=== PATIENT | male | born 1950 | race Caucasian/White ===

== ENCOUNTER 2017-05-18 03:02 | Emergency (ER) | payer MEDICAID ==
[~2017-05-18] VITALS: Ht 170.2 cm; Wt 90.7 kg
[~2017-05-18 03:02] MED LIST: AMLODIPINE BESY10 MG PO; ATIVAN1 MG PO; FLOMAX0.4 MG PO; HYDROCHLOROTHIA25 MG PO; METOPROLOL SUCC25 MG PO; PRAVACHOL40 MG PO; VICODIN HP 10-1 EAC1 PO
--- NOTE | 2017-05-18 20:37 | EKG ---
[facility] [address] [facility] [place] [address] Signed Sinus tachycardia Otherwise normal ECG No previous ECGs available Confirmed by ISAAC VALDEZ MD ([id number]) on 05/18/2017 8:37:32 PM Electronically Signed By: ISAAC VALDEZ MD 05/18/17 2037 PATIENT NAME: PETE NICOLE Electrocardiogram DATE OF : 54 PHYSICIAN: ISAAC VALDEZ MD REPORT #: [id number] REPORT IS CONFIDENTIAL AND NOT TO BE RELEASED WITHOUT AUTHORIZATION
== END 2017-05-18 06:25 | disposition home or self-care (01) ==
LOC: ED 03:02
DX: R07.89 Other chest pain (principal); F10.239 Alcohol dependence with withdrawal, unspecified; F19.10 Other psychoactive substance abuse, uncomplicated; I10 Essential (primary) hypertension; Z79.899 Other long term (current) drug therapy; Y90.4 Blood alcohol level of 80-99 mg/100 ml
CPT/HCPCS: 36415; 71010; 71260; 80048; 80053; 84484; 85025; 85379; 85610; 85730; 93005; 93010; 96365; 96366; 96375; 99284; G0480; J2060; J3411; J7030; Q9967

== ENCOUNTER 2020-04-07 18:38 | Emergency (ER) | payer MEDICARE, MEDICAID ==
[~2020-04-07] VITALS: Ht 170.2 cm; Wt 81.6 kg
--- OUTSIDE RECORDS SUMMARY | 2020-04-07 18:42 | XMS ---
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 No recent Security Events currently on file CRITERIA MET - 6 ED Visits in 6 Months - [facility] - 2 Visits in 30 Days CARE PROVIDERS KYLIE GÓMEZ Economics Consultant/Wrapper Off Current PHONE: [phone] [facility] 06/20/2013-[facility] for [facility] PHONE: [phone] MAYA PINON Internal Medicine 02/11/2015-Current PHONE: [phone] SYLVIA ACHARYA Economics Consultant/Wrapper Off Current PHONE: [phone] Care Guidelines exist for the following facilities: [facility] ( 04/22/2019 ) [facility] VISIT COUNT (12 MO.) [address] [facility] TOTAL 8 NOTE: Visits indicate total known visits. ED/UCC VISIT TRACKING (12 MO.) 04/07/2020 18:39 [facility] [place] TYPE: Emergency COMPLAINT: - DETOX 04/01/2020 09:10 [facility] [place] TYPE: Emergency DIAGNOSES: 83554. FALL 76710. Chronic obstructive pulmonary disease, unspecified 22076. Alcohol abuse, uncomplicated 54311. Cervicalgia 59358. Other chronic pain 79471. Unspecified injury of head, initial encounter 03/27/2020 04:[address] [facility] [facility] [place] [facility] DIAGNOSES: 16285. ALCOHOL ISSUES 28506. Chest pain, unspecified 69107. Dyspnea, unspecified 65205. Alcohol use, unspecified with intoxication, uncomplicated 03/25/2020 14:16 [facility] [place] TYPE: Emergency DIAGNOSES: 50051. NOT FEELING WELL 26807. Alcohol use, unspecified with intoxication, uncomplicated 03/24/2020 04:25 [facility] [place] TYPE: Emergency DIAGNOSES: 75753. ALCOHOL W/D 04567. Major depressive disorder, single episode, unspecified . Suicidal ideations . Alcohol dependence with withdrawal, uncomplicated 02/12/2020 22:54 [facility] TYPE: Emergency DIAGNOSES: 38698. ANAPHYLAXIS 55399. Angioneurotic edema, initial encounter 01/20/2020 05:53 [facility] [place] TYPE: Emergency DIAGNOSES: 90794. BACK PAIN 98725. Strain of muscle, fascia and tendon of lower back, initial encounter 80768. Low back pain [facility] [place] DIAGNOSES: 14869. Chest pain after surgery INPATIENT VISIT TRACKING (12 MO.) 12/12/2019 08:17 [facility] TYPE: Surgery DIAGNOSES: 65157. Other intraoperative and postprocedural complications and disorders of the musculoskeletal system 18694. sternal pain [email or web address]
[2020-04-07] MEDS ORDERED: LISINOPRIL-HCT1 EACH PO (19:09)
[2020-04-07] MEDS ORDERED: HYDROCODON-ACE1 EA11 PO (19:09)
--- NOTE | 2020-04-08 18:14 | EKG ---
[facility] [address] [facility] [place] [address] Signed Sinus tachycardia with occasional premature ventricular complexes Nonspecific ST and T wave abnormality Abnormal ECG When compared with ECG of 18-MAY-2017 03:06, premature ventricular complexes are now present ST now depressed in Anterior leads Nonspecific T wave abnormality now evident in Anterolateral leads Confirmed by MONAE SOLORZANO DO ([id number]) on 04/08/2020 6:13:51 PM Electronically Signed By: MONAE SOLORZANO DO 04/08/20 1814 PATIENT NAME: PETE NICOLE Electrocardiogram DATE OF : 54 PHYSICIAN: MONAE SOLORZANO DO REPORT #: [id number] REPORT IS CONFIDENTIAL AND NOT TO BE RELEASED WITHOUT AUTHORIZATION
== END 2020-04-07 20:20 | disposition left against medical advice (07) ==
LOC: ED 18:38
DX: S09.90XA Unspecified injury of head, initial encounter (principal); F10.139 Alcohol abuse with withdrawal, unspecified; J44.9 Chronic obstructive pulmonary disease, unspecified; R07.89 Other chest pain; W19.XXXA Unspecified fall, initial encounter; F17.200 Nicotine dependence, unspecified, uncomplicated; Z88.2 Allergy status to sulfonamides; Z88.8 Allergy status to other drugs, medicaments and biological substances; Z79.899 Other long term (current) drug therapy; Z79.891 Long term (current) use of opiate analgesic
CPT/HCPCS: 80053; 81001; 83605; 83735; 84484; 85025; 85610; 93005; 93010; 96374; 96375; 99285-25; G0480; J2060; J2405